=== PATIENT | male | born 1990 | race Caucasian/White ===

== ENCOUNTER 2017-12-28 05:27 | Emergency (ER) | payer SELFPAY ==
[2017-12-28 05:29] VITALS: BP 154/65; PULSE 68; RESP 18; TEMP 97.5; O2SAT 100
--- NOTE | 2017-12-28 05:45 | ED PDOC ---
HPI: Psych/Substance Abuse Time Seen by Provider: 12/28/17 05:37 Chief Complaint (Nursing): Alcohol Ingestion Chief Complaint (Provider): Alcohol Ingestion History Per: Patient, EMS History/Exam Limitations: no limitations Additional Complaint(s): 27 year old male presents to the ED via EMS for alcohol ingestion. As per EMS, patient was found sleeping on the stairs of someone's residence. Despite being ambulatory at the scene, patient was brought in for evaluation because patient resides in [place] and was found in [place]. Patient admits to drinking tonight, but has no complaints or reports of trauma. Patient states he can take an uber home. Patient states he does not want or need medical attention at this time. PMD: none provided Past Medical History Reviewed: Historical Data, Nursing Documentation, Vital Signs Vital Signs: Last Vital Signs Temp 97.5 F L 12/28/17 05:35 Pulse 68 12/28/17 05:35 Resp 18 12/28/17 05:35 BP 154/65 H 12/28/17 05:35 Pulse Ox 100 12/28/17 05:35 - Medical History PMH: No Chronic Diseases - Surgical History Other surgeries: x2 right hip surgeries - Family History Family History: States: Unknown Family Hx - Social History Current smoker - smoking cessation education provided: No Alcohol: Social Drugs: Denies - Allergies Allergies/Adverse Reactions: Allergies Allergy/AdvReac Type Severity Reaction Status Date / Time Penicillins Allergy RASH Verified 12/28/17 05:35 Review of Systems ROS Statement: Except As Marked, All Systems Reviewed And Found Negative Psych: Positive for: Other (alcohol ingestion) Physical Exam - Reviewed Nursing Documentation Reviewed: Yes Vital Signs Reviewed: Yes - Physical Exam Comments: GENERAL APPEARANCE: Patient is awake, alert, oriented x 3, in no acute distress. Steady gait in ED. SKIN: Warm, dry; (-) cyanosis ENMT: Mucous membranes moist. Airway patent: (-) stridor. NECK: Supple, FROM HEART AND CARDIOVASCULAR: (-) irregularity CHEST AND RESPIRATORY: (-) rales, (-) rhonchi, (-) wheezes; breath sounds equal. Respirations even and nonlabored. ABDOMEN: Soft, (-) distention, (-) tenderness, (-) guarding. NEURO AND PSYCH: Mental status as above. Affect: calm, cooperative. computer forensic specialist: Intact. Pupils equal and reactive; EOMI; (-) facial asymmetry. Speech: clear. - ECG O2 Sat by Pulse Oximetry: 100 (RA) Pulse Ox Interpretation: Normal Medical Decision Making Medical Decision Making: Time: 539 Initial Impression: alcohol ingestion Initial Plan: --Patient is clinically sober at this time. Patient is stable for discharge and will return to his residence via Uber. Vitals stable. Lab/Diagnostic results d/w the patient in great detail. Diagnosis of alcohol ingestion d/w the patient. Based on history, exam and diagnostic results, plan will be for outpatient follow up. Patient instructed to follow-up with pmd / referral provided / the clinic in 1- 2 days without fail. Return to the emergency room at any time for any new or worsening symptoms. Patient states he fully agrees with and understands discharge instructions. States that he agrees with the plan and disposition. Verbalized and repeated discharge instructions and plan. I have given the patient opportunity to ask any additional questions. Scribe Attestation: Documented by Susan Downing, acting as a scribe for Shameka Shanks PA-C. Provider Scribe Attestation: All medical record entries made by the Scribe were at my direction and personally dictated by me. I have reviewed the chart and agree that the record accurately reflects my personal performance of the history, physical exam, medical decision making, and the department course for this patient. I have also personally directed, reviewed, and agree with the discharge instructions and disposition. Disposition - Clinical Impression Clinical Impression: Alcohol ingestion - Patient ED Disposition Is Patient to be Admitted: No Counseled Patient/Family Regarding: Studies Performed, Diagnosis, Need For Followup - Disposition Referrals: [facility] [Outside] Disposition: Routine/Home Disposition Time: 05:43 Condition: STABLE Additional Instructions: The emergency medical care you received today was directed towards the acute presenting symptoms. If you were prescribed any medication, please fill it and give as directed. It may take several days for your symptoms to resolve. Return to the Emergency Department at any time if symptoms worsen, do not improve, or if any other problems arise. Please contact your doctor in 2 days for re-evaluation and follow up / or call one of the physicians/clinics you have been referred to that are listed on the Patient Visit Information form that is included in your discharge packet. Bring any paperwork you were given at discharge with you along with any medications to your follow up visit. Our treatment cannot replace ongoing medical care by a primary care provider (PCP) outside of the emergency department. Instructions: Alcohol Use - When Is Drinking a Problem?, General (DC), Effects of Alcohol on Your Health Forms: [employer] (Lao) Print Language: DANISH - POA Present On Arrival: None
== END 2017-12-28 05:51 | disposition home or self-care (01) ==
LOC: H.ER 05:27
DX: F10.10 Alcohol abuse, uncomplicated (principal); Z88.0 Allergy status to penicillin

== ENCOUNTER 2018-08-31 17:22 | Emergency (ER) | payer OTHER ==
[2018-08-31 17:28] VITALS: TEMP 98
--- NOTE | 2018-08-31 18:17 | ED PDOC ---
Lower Extremity Pain/Injury Time Seen by Provider: 08/31/18 17:49 Chief Complaint (Nursing): Lower Extremity Problem/Injury Chief Complaint (Provider): Right ankle pain History Per: Patient History/Exam Limitations: no limitations Additional Complaint(s): 28 y/o M with no significant PMH who presents with Right ankle pain and swelling after twisting it and falling onto Right ankle while playing soccer. Denies numbness or tingling. He has not taken any medication for pain. Past Medical History Reviewed: Historical Data, Nursing Documentation, Vital Signs Vital Signs: Last Vital Signs Temp 98 F 08/31/18 17:25 Pulse 88 08/31/18 17:25 Resp 20 08/31/18 17:25 BP 112/63 08/31/18 17:25 Pulse Ox 98 08/31/18 17:25 Primary Care Provider: FAMILY PROVIDER,NO - Medical History PMH: No Chronic Diseases - Family History Family History: States: Unknown Family Hx - Home Medications Home Medications: Ambulatory Orders Medication Instructions Recorded Ibuprofen [Motrin Tab] 600 mg PO Q6 PRN 7 Days tab 08/31/18 - Allergies Allergies/Adverse Reactions: Allergies Allergy/AdvReac Type Severity Reaction Status Date / Time Penicillins Allergy RASH Verified 12/28/17 05:35 Review of Systems Musculoskeletal: Positive for: Foot Pain (ankle) Physical Exam - Reviewed Nursing Documentation Reviewed: Yes Vital Signs Reviewed: Yes - Physical Exam Appears: Positive for: Uncomfortable Extremity: Positive for: Swelling (+ swelling primarily on Right lateral malleolus with tenderness on palpation inferior to R lateral malleolus). Negative for: Normal ROM (mildly decreased flexion of Right ankle), Deformity Neurological/Psych: Positive for: Awake, Alert, Oriented - ECG O2 Sat by Pulse Oximetry: 98 Medical Decision Making Medical Decision Making: Right ankle x-ray Ibuprofen 600mg PO x 1 Right ankle x-ray read by me: no fracture appreciated Right ankle air cast and crutches with crutch training provided. Pt advised to rest ankle, elevate it, continue to ice it x 24hrs, Ibuprofen or Tylenol for pain. Disposition - Clinical Impression Clinical Impression: Ankle sprain - Patient ED Disposition Is Patient to be Admitted: No Counseled Patient/Family Regarding: Studies Performed, Diagnosis, Need For Followup, Rx Given - Disposition Referrals: Vini Collier DPM [Medical Doctor] - Disposition: Routine/Home Disposition Time: 19:50 Condition: STABLE Additional Instructions: Follow up with soaping department supervisor (Dr. Collier) if your pain is not improving and you are still unable to bear weight. Take Ibuprofen as needed for pain. Use crutches and air cast for support until you are able to bear weight. Rest your ankle, elevate it, ice it for the next 24hrs 20 min on at a time. Prescriptions: Ibuprofen [Motrin Tab] 600 mg PO Q6 PRN 7 Days tab PRN Reason: Pain, Moderate (4-7) Forms: [facility] (Vietnamese) Print Language: UZBEK
[2018-08-31 19:57] VITALS: BP 116/64; PULSE 74; RESP 16
[2018-08-31 22:05] VITALS: O2SAT 98
--- NOTE | 2018-09-01 13:31 | RAD ---
Date of service: 08/31/2018 PROCEDURE: Right Ankle Radiographs. HISTORY: inversion injury w/ fall ontol ankle COMPARISON: None available. TECHNIQUE: 3 views obtained. FINDINGS: BONES: No visible fracture. JOINTS: Normal. No osteoarthritis. Ankle mortise maintained. Talar dome intact SOFT TISSUES: Lateral and anterior soft tissue swelling. No evidence of distal fibular, tibial, talar or calcaneal fracture. OTHER FINDINGS: None. IMPRESSION: Soft tissue swelling without acute articular or osseous abnormality.
== END 2018-08-31 19:57 | disposition home or self-care (01) ==
LOC: H.ER 17:22
DX: S93.401A Sprain of unspecified ligament of right ankle, initial encounter (principal); W18.39XA Other fall on same level, initial encounter; Y93.66 Activity, soccer; Z88.0 Allergy status to penicillin